=== PATIENT | female | born 2000 | race Caucasian/White ===

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

== ENCOUNTER 2020-02-23 05:42 | Day surgery (SDC) | payer OTHER ==
[2020-02-22 10:29] LABS: MICROSCOPIC INDICATED
[~2020-02-23] VITALS: Ht 157.5 cm; Wt 54.2 kg
[~2020-02-23 05:42] MED LIST: calcium citrate PO
[2020-02-23] MEDS ORDERED: LIDOCAINE-MPF 1%, 2ML INFIL ONE (06:30)
[2020-02-23] MEDS ORDERED: LACTATED RINGERS 1,000 ML IV SCH (06:30)
[2020-02-23] MEDS ORDERED: ACETAMINOPHEN 500 MG TABLET PO ONE (06:30)
[2020-02-23] MEDS ORDERED: CHLORHEXIDINE 15 ML UDC MM ONE (06:30)
[2020-02-23 06:35] LABS: HCG UR SG 1.031 (1.003-1.030)
[2020-02-23] MEDS ORDERED: MIDAZOLAM 1 MG/ML, 2ML ONE (06:48)
[2020-02-23] MEDS ORDERED: FENTANYL PF 250 MCG/5ML ONE (06:49)
[2020-02-23] MEDS ORDERED: EPINEPHRINE 1 MG/ML, 1ML ONE (06:56)
[2020-02-23] MEDS ORDERED: SILVER NITRATE STICK TP ONE (06:56)
[2020-02-23] MEDS ORDERED: BUPIVACAINE/PF 0.5% ONE (06:56)
[2020-02-23] MEDS ORDERED: SCOPOLAMINE 1MG PATCH TD ONE (07:18)
[2020-02-23] MEDS ORDERED: morphine SULFATE 10 MG/ML, 1ML IVPush PRN (07:30)
[2020-02-23] MEDS ORDERED: hydrALAzine 20 MG/ML, 1ML IV PRN (07:30)
[2020-02-23] MEDS ORDERED: PROMETHAZINE 25 MG/ML, 1ML IVPush PRN (07:30)
[2020-02-23] MEDS ORDERED: HYDROmorphone 1 MG/ML, 1ML INJ IVPush PRN (07:30)
[2020-02-23] MEDS ORDERED: OXYcodone 5 MG/5 ML ORAL.SOL UDC PO PRN (07:30)
[2020-02-23] MEDS ORDERED: MEPERIDINE/PF 25MG/0.5ML IVPush PRN (07:30)
[2020-02-23] MEDS ORDERED: ACETAMINOPHEN 325 MG TABLET PO PRN (07:30)
[2020-02-23] MEDS ORDERED: FENTANYL PF 100 MCG/2ML IV PRN (07:30)
[2020-02-23] MEDS ORDERED: HALOPERIDOL 5 MG/ML IV PRN (07:30)
[2020-02-23] MEDS ORDERED: LABETALOL 5MG/ML, 20ML IV PRN (07:30)
[2020-02-23] MEDS ORDERED: DEXAMETHASONE 4 MG/ML, 5ML ONE (07:44)
[2020-02-23] MEDS ORDERED: PHENYLEPHRINE 10 MG/ML ONE (07:44)
[2020-02-23] MEDS ORDERED: KETOROLAC 30 MG/1 ML ONE ×2 (07:56)
[2020-02-23] MEDS ORDERED: PROPOFOL 10 MG/ML, 20ML ONE (07:56)
[2020-02-23] MEDS ORDERED: ONDANSETRON 2MG/ML, 2ML ONE (07:56)
== END 2020-02-23 09:26 | disposition home or self-care (01) ==
LOC: OUT 05:42
PROVIDERS: ATTEND Obstetrics & Gynecology
DX: Q52.3 Imperforate hymen (principal); Z20.822 Contact with and (suspected) exposure to COVID-19; Z79.899 Other long term (current) drug therapy
CPT/HCPCS: 56700; 81001; 81025; 87086; 87635; J0171; J1100; J2250; J2370; J2405; J2704; J3010; J7120; J1885